=== PATIENT | male | born 1965 | race Caucasian/White ===

== ENCOUNTER → 2016-12-26 12:08 | Outpatient (CLI) | payer OTHER ==
[2009-12-03 08:02] VITALS: BMI 37.8
== END | disposition home or self-care (01) ==
LOC: D.RAD 11:15
DX: Z02.71 Encounter for disability determination (principal)

== ENCOUNTER → 2017-03-13 10:15 | Outpatient (CLI) | payer OTHER ==
[2009-12-03 08:02] VITALS: BMI 37.8
== END | disposition home or self-care (01) ==
LOC: D.RAD 02-10 10:00
DX: Z02.71 Encounter for disability determination (principal)